=== PATIENT | male | born 2000 | race American Indian/Alaskan Native ===

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

== ENCOUNTER 2022-05-22 11:13 | Emergency (ER) | payer MEDICAID ==
[2022-05-22] MEDS ORDERED: Ibuprofen 600 MG Tab PO ONE (11:36)
[2022-05-22 11:38] VITALS: BP 148/87; PULSE 86
[2022-05-22] MEDS ORDERED: Iopamidol 612 MG/ML 100 ML Bottle IVPUSH ONE (11:49)
[2022-05-22 12:06] LABS: ANION GAP 12.8 mEq/L (7-13)
[2022-05-25 12:47] LABS: C.TRACHOMATIS BY TMA Negative (Negative); N.GONORRHOEAE BY TMA Negative (Negative)
== END 2022-05-22 13:40 | disposition home or self-care (01) ==
LOC: DL.ED 11:13
DX: R59.0 Localized enlarged lymph nodes (principal); M79.652 Pain in left thigh; R93.5 Abnormal findings on diagnostic imaging of other abdominal regions, including retroperitoneum
CPT/HCPCS: 36415; 72193; 80053; 81003; 85025; 85651; 86140; 87081; 87389; 87430; 87491; 87563; 87591; 99284; A9270; Q9967